=== PATIENT | male | born 1965 | race Caucasian/White ===

== ENCOUNTER 2016-11-23 09:06 | Day surgery (SDC) | payer OTHER ==
[~2016-11-23] VITALS: Ht 160 cm; Wt 102.0 kg
[2016-11-23 09:30] VITALS: Ht 160 cm; Wt 102.0 kg
[2016-11-23] MEDS ORDERED: NOVO7030 SC (09:49)
[2016-11-23] MEDS ORDERED: BUPR1PAT TD (09:49)
[2016-11-23] MEDS ORDERED: INSU100I33 SC (09:49)
[2016-11-23] MEDS ORDERED: LIDO700A45 TP (09:49)
[2016-11-23] MEDS ORDERED: SIMV20TA6 PO (09:49)
[2016-11-23] MEDS ORDERED: LISI2.5T59 PO (09:49)
[2016-11-23] MEDS ORDERED: SITA100T8 PO (09:49)
[2016-11-23] MEDS ORDERED: DICL100G26 TP (09:49)
[2016-11-23] MEDS ORDERED: GABA300S PO (09:49)
[2016-11-23] MEDS ORDERED: ASPI-535 PO (09:49)
[2016-11-23] MEDS ORDERED: PROPOFOL 20 ML ONE ×3 (10:04→11:23)
[2016-11-23] MEDS ORDERED: LIDOCAINE 2% (SDV) 5 ML INJ ONE (10:04)
[2016-11-23] MEDS ORDERED: MIDAZOLAM 1 MG/ML 2 ML INJ ONE (10:05)
[2016-11-23 10:24] VITALS: BP 132/66; PULSE 70; RESP 26
--- NOTE | 2016-11-23 11:55 | OPPN ---
Date/Time of Note Date/Time of Note DATE: 11/23/16 TIME: 11:53 Operative Report Preoperative Diagnosis Screening Postoperative Diagnosis Large flat polyp in the right colon was removed using the snare and electrocautery Small sigmoid colon polyp was removed using biopsy forceps Operation/Procedure Performed Colonoscopy biopsy and polypectomy Surgeon see signature line prosthetic assistant None Anesthesia: MAC Estimated blood loss: none Transfusion Required none Specimen Colon polyps Grafts/Implants none Complications none JOHN PERDOMO MD Nov 23, 2016 11:54
--- NOTE | 2016-11-23 12:54 | GILP ---
DATE OF PROCEDURE: 11/23/2016 NAME OR PROCEDURE: Colonoscopy, biopsy and polypectomy. SURGEON: Raven Corley MD. PREOPERATIVE DIAGNOSIS: Screening colonoscopy. POSTOPERATIVE DIAGNOSES: 1. Colonoscopy all the way to the cecum. 2. Large flat polyp in the right colon was removed in pieces using the snare and electrocautery. 3. Small sigmoid colon polyp was removed using biopsy forceps. 4. Internal hemorrhoids. INDICATIONS FOR PROCEDURE: The patient is a 51-year-old male patient who was scheduled for screening colonoscopy. The procedure and possible complications were well explained to the patient. He understood and consented to the procedure. DESCRIPTION OF PROCEDURE: Under the influence of anesthesia, the colonoscope was carefully introduced in the rectum. Under direct vision, it was advanced all the way to the cecum. Findings, the patient was noted to have a large flat polyp in the right colon and it was removed in pieces using the snare and electrocautery. The patient had a small sigmoid colon polyp and it was removed using biopsy forceps. He was noted to have internal hemorrhoids. He tolerated the procedure very well. There was no complication from the procedure. At the end of procedure, he was awake with stable vital signs. He was discharged home in the care of his family. IMPRESSION: 1. Colonoscopy all the way to the cecum. 2. Large flat polyp in the right colon was removed in pieces using the snare and electrocautery. 3. Small sigmoid colon polyp was removed using biopsy forceps. 4. Internal hemorrhoids. PLAN: 1. Await histopathology report. 2. Because of the large size and flat nature of the polyp, the patient will need followup colonoscopy in 6 months to 1 year depending upon the histopathology report. Dictated By: MD NANCI Arredondo/noemi/lindsay /Document#: [id number]
== END 2016-11-23 13:00 | disposition home or self-care (01) ==
LOC: GIL 09:06
PROVIDERS: ATTEND Internal Medicine Gastroenterology
DX: D12.0 Benign neoplasm of cecum (principal); D12.5 Benign neoplasm of sigmoid colon; K64.8 Other hemorrhoids; E11.21 Type 2 diabetes mellitus with diabetic nephropathy; I25.2 Old myocardial infarction; R07.9 Chest pain, unspecified; E66.01 Morbid (severe) obesity due to excess calories; Z68.39 Body mass index [BMI] 39.0-39.9, adult
CPT/HCPCS: 45380; 82962; 88305; J2250; Z7610